=== PATIENT | female | born 1960 | race Caucasian/White ===

== ENCOUNTER 2016-08-11 14:54 | Emergency (ER) | payer OTHER, BC ==
[~2016-08-11] VITALS: Ht 162.6 cm; Wt 90.8 kg
[2016-08-11 14:57] VITALS: TEMP 36.7; Ht 162.6 cm; Wt 90.8 kg
--- NOTE | 2016-08-11 15:11 | EMERGENCY ROOM VISIT NOTE ---
History First contact with patient: 15:02 Chief Complaint: FALL Stated Complaint: FALL History of Present Illness The patient is a 56 year old female who presents to the Emergency Room via private vehicle with complaints of "fall". The patient states that on Tuesday morning as she was walking her dog around 10 AM, she fell. She states that she fell forward. She did not have a syncopal event or lose consciousness. She did not strike her head. When she fell on outstretched hands she injured the right wrist, and right shoulder. She has a history of previous right shoulder surgery. She has continued ice to both areas and has taken ibuprofen with some relief of her pain. She is here potentially to rule out fracture of the affected regions. The patient is right-handed. Review of Systems A complete 6-point Review of Systems was discussed with the patient, with pertinent positives and negatives listed in the History of Present Illness. All remaining Review of Systems questions can be considered negative unless otherwise specified. Past Medical/Surgical History Diabetes, heart disease, sarcoidosis Family History Diabetes, cancer, lung disease. Social History Smoking Status: Former Smoker Social History: Patient lives at home with her , and denies alcohol and tobacco use. Current/Historical Medications Scheduled Budesonide/Formoterol Fumarate (Symbicort 160/4.5 Inhaler ), 2 PUFFS INH BID Duloxetine HCl (Cymbalta), 1 CAP PO DAILY Estrogens, Conjugated (Premarin), 1.25 MG PO DAILY Insulin Glargine (Lantus), 30 UNITS SC QAM Liraglutide (Victoza), 1 DOSE INH DAILY Meloxicam (Meloxicam), 15 MG PO DAILY Metformin Hcl (Glucophage), 1,000 MG PO BID Metoprolol Succ (Toprol Xl) (Toprol-Xl), 50 MG PO DAILY Scheduled PRN Albuterol Hfa (Ventolin Hfa), 2-4 PUFFS INH Q6H PRN for SOB/Wheezing Allergies Coded Allergies: No Known Allergies (Unverified , 08/11/16) Physical Exam Vital Signs Date Time Temp Pulse Resp B/P Pulse Ox O2 Delivery O2 Flow Rate FiO2 08/11/16 16:28 76 18 118/73 96 08/11/16 14:57 36.7 77 18 117/71 96 Room Air Physical Exam VITAL SIGNS - Vital signs and nursing notes were reviewed. Patient is afebrile , normotensive, non-tachycardic and is saturating well on room air 96%. GENERAL -56-year-old female appearing her stated age who is in no acute distress. Communicates well with provider and answers questions appropriately. SKIN - Without rashes. There are small abrasions noted to the ventral aspect of the wrists bilaterally. HEAD - NC/AT. No evidence of injury to the head. EYES - PERRL with EOMI bilaterally. Sclera anicteric. Palpebral conjunctiva pink and moist with no injection noted. EARS - No deformities of external structures noted on gross examination bilaterally. NOSE - Midline and without cyanosis. No epistaxis or purulent drainage noted. MOUTH/OROPHARYNX - Without perioral cyanosis. Buccal mucosa pink and moist and without leukoplakia. Tongue midline with equal elevation of palate bilaterally. No tonsillar hypertrophy, erythema, or exudates noted. Good dentition noted. NECK - Neck with FROM. No C spine tenderness. LUNGS - Chest wall symmetric without accessory muscle use, intercostals retractions, or central cyanosis. Normal vesicular breath sounds CTA B/L. No wheezes, rales, or rhonchi appreciated. CARDIAC - RRR with S1/S2. No murmur, rubs, or gallops appreciated. EXTREMITIES - No clubbing or peripheral cyanosis. No pretibial edema present. She is neurovascularly intact in the upper extremities. +5/5 strength noted in UE/LE bilaterally. There is tenderness to the anterior shoulder (right), over the AC joint. No elbow, forearm or wrist tenderness. With AROM of the right wrist there is elicited pain. Medical Decision & Procedures ER Provider Diagnostic Interpretation: [~ rep ct add3]] RIGHT HUMERUS MIN 2 VIEWS ROUTINE CLINICAL HISTORY: Right arm pain following fall. COMPARISON: None FINDINGS: Alignment of the right elbow is anatomic. There is no right elbow joint effusion. No acute fracture of the right humerus is identified. IMPRESSION: No acute fracture of the right humerus. Electronically signed by: Gabino López M.D. 08/11/2016 3:58 PM Dictated Date/Time: 08/11/2016 3:55 PM RIGHT WRIST W/NAVICULAR MIN 3 VIEWS CLINICAL HISTORY: Right wrist pain status post trauma COMPARISON: None. DISCUSSION: The bones are mildly osteopenic. No acute fractures or dislocations are visualized. IMPRESSION: No fractures identified. Electronically signed by: Monty Colon M.D. 08/11/2016 3:44 PM Dictated Date/Time: 08/11/2016 3:43 PM RIGHT SHOULDER MIN 2 VIEWS ROUTINE CLINICAL HISTORY: Right shoulder pain s/p fall Right trauma. Pain. COMPARISON: None. DISCUSSION: The bones and joint spaces appear intact. There is no evidence of fracture, dislocation or bony disease. There is no evidence for soft tissue swelling. Probable minimal grade 1 separation right acromioclavicular joint. IMPRESSION: Minimal grade 1 separation right acromioclavicular joint. Otherwise negative study Electronically signed by: Benedicto Car M.D. 08/11/2016 3:42 PM Dictated Date/Time: 08/11/2016 3:41 PM Medical Decision Patient was seen and evaluated as above. After obtaining a thorough history and physical examination radiographs were obtained of the affected regions. Results as above. No acute bony abnormality, however there is a slight separation of the right AC joint. This is grade one. She was fitted with an arm sling. She was educated upon use and frozen shoulder complications. She is returning to [place] tomorrow. She has an established orthopedic group in that area. She is to call and request follow up. She declined wrist splint. She was educated upon management, worrisome symptoms in which to return, had questions answered prior to discharge and was discharged home in good condition. In the evaluation and treatment of this patient, the following differential diagnoses were considered: Shoulder Contusion, Shoulder Fracture, Shoulder Dislocation, Thoracic Outlet Syndrome, Adhesive Capsulitis, Rotator Cuff Tear, Proximal Clavicle Head Fracture, Apical Pneumonia, Pneumothorax, Hemothorax, or TB, Wrist Sprain, Wrist Fracture, Wrist Dislocation, Scapholunate Dissociation, Carpal Fracture, Metacarpal Fracture, Radial Styloid Process Fracture, Ulnar Styloid Process Fracture, or Carpal Tunnel Syndrome. Impression Primary Impression: Fall Additional Impression: Acromioclavicular joint separation, type 1 Departure Information Dispostion Home / Self-Care Condition GOOD Referrals No Doctor, Assigned (PCP) Patient Instructions My [facility] Additional Instructions You have been treated in the Emergency Department for Shoulder Pain, arm pain and wrist pain. For pain control, you can use the following [id number] medicines (if >12 yo): - Regular strength (325mg/tab) Tylenol (acetaminophen) 2 tabs every 4-6 hours as needed. Do not exceed 12 tablets in a 24 hour period. Avoid taking more than 4 grams (4000 mg) of Tylenol per day. This includes any other sources of acetaminophen you may take on a regular basis. - Regular strength (200 mg/tab) Advil (ibuprofen) 1-2 tabs every 4-6 hours as needed. Do not exceed a dose of 3200 mg per day. If this is a recent injury (<24 hrs), ice can be applied to the area of pain for the first 3 days to help decrease pain and inflammation. You have been provided the number for an Orthopaedic Surgeon. You should call this number as soon as possible to establish a follow-up visit from today's Emergency Department visit. XRAY: IMPRESSION: Minimal grade 1 separation right acromioclavicular joint. Keep the shoulder brace/sling in place until evaluated by Orthopedics. Continue to perform range of motion exercises several times per day to help prevent the development of a "frozen shoulder". As we discussed please call your orthopedic surgeon in [place] to schedule follow-up. Return to the Emergency Department if your current symptoms worsen despite treatment course outlined above, or if you develop any of the following symptoms : intractable pain despite aforementioned treatment course or new onset of numbness or tingling of the arm. Please return to the emergency department with any new/concerning symptoms. Problem Qualifiers
[2016-08-11] MEDS ORDERED: LIRA18IN INH (15:28)
[2016-08-11] MEDS ORDERED: CYM/30 PO (15:28)
[2016-08-11] MEDS ORDERED: SYMIN160 INH (15:28)
[2016-08-11] MEDS ORDERED: VNTHFA/IN INH (15:28)
[2016-08-11] MEDS ORDERED: PRM/125 PO (15:28)
[2016-08-11] MEDS ORDERED: METO50TA7 PO (15:28)
[2016-08-11] MEDS ORDERED: INSDGI SC (15:28)
[2016-08-11] MEDS ORDERED: METF-384 PO (15:28)
[2016-08-11] MEDS ORDERED: MELO15TA4 PO (15:28)
--- NOTE | 2016-08-11 15:43 | DIAGNOSTIC IMAGING REPORT ---
RIGHT SHOULDER MIN 2 VIEWS ROUTINE CLINICAL HISTORY: Right shoulder pain s/p fall Right trauma. Pain. COMPARISON: None. DISCUSSION: The bones and joint spaces appear intact. There is no evidence of fracture, dislocation or bony disease. There is no evidence for soft tissue swelling. Probable minimal grade 1 separation right acromioclavicular joint. IMPRESSION: Minimal grade 1 separation right acromioclavicular joint. Otherwise negative study Electronically signed by: Benedicto Car M.D. 08/11/2016 3:42 PM Dictated Date/Time: 08/11/2016 3:41 PM
--- NOTE | 2016-08-11 15:45 | DIAGNOSTIC IMAGING REPORT ---
RIGHT WRIST W/NAVICULAR MIN 3 VIEWS CLINICAL HISTORY: Right wrist pain status post trauma COMPARISON: None. DISCUSSION: The bones are mildly osteopenic. No acute fractures or dislocations are visualized. IMPRESSION: No fractures identified. Electronically signed by: Monty Colon M.D. 08/11/2016 3:44 PM Dictated Date/Time: 08/11/2016 3:43 PM
--- NOTE | 2016-08-11 15:59 | DIAGNOSTIC IMAGING REPORT ---
RIGHT HUMERUS MIN 2 VIEWS ROUTINE CLINICAL HISTORY: Right arm pain following fall. COMPARISON: None FINDINGS: Alignment of the right elbow is anatomic. There is no right elbow joint effusion. No acute fracture of the right humerus is identified. IMPRESSION: No acute fracture of the right humerus. Electronically signed by: Gabino López M.D. 08/11/2016 3:58 PM Dictated Date/Time: 08/11/2016 3:55 PM
[2016-08-11 16:28] VITALS: BP 118/73; PULSE 76; O2SAT 96
== END 2016-08-11 16:29 | disposition home or self-care (01) ==
LOC: C.EDB 14:56 → C.EDD 16:29
DX: S43.101A Unspecified dislocation of right acromioclavicular joint, initial encounter (principal); W18.30XA Fall on same level, unspecified, initial encounter; Y93.K1 Activity, walking an animal; S69.91XA Unspecified injury of right wrist, hand and finger(s), initial encounter; E11.9 Type 2 diabetes mellitus without complications; D86.9 Sarcoidosis, unspecified; Z87.891 Personal history of nicotine dependence; Z83.3 Family history of diabetes mellitus; Z79.4 Long term (current) use of insulin